=== PATIENT | female | born 1965 | race Caucasian/White ===

== ENCOUNTER 2016-06-19 09:25 | Day surgery (SDC) | payer BC ==
[2016-06-17 12:16] LABS: BASOPHILS 0.5 %; BASOPHILS ABSOLUTE 0.03 10/3/uL (0.0-0.16); EOSINOPHILS 0.9 %; EOSINOPHILS ABSOLUTE 0.05 10/3/uL (0.0-0.53); HEMATOCRIT 39.9 % (36.0-48.0); IMMATURE GRANULOCYTES 0.2 %; IMMATURE GRANULOCYTES ABSOLUTE 0.01 10/3/uL (0.0-0.11); LYMPHOCYTES 41.7 %; MEAN CORPUS HGB CONC 35.1 g/dL (32.0-36.0); MEAN CORPUSCULAR HEMOGLOB 32.9 pg (26.0-34.0); MEAN CORPUSCULAR VOLUME 93.9 fL (80-100); MONOCYTES 8.2 %; MONOCYTES ABSOLUTE 0.47 10/3/uL (0.21-1.20); NEUTROPHILS 48.5 %; NEUTROPHILS ABSOLUTE 2.79 10/3/uL (2.02-8.40); PLATELET COUNT 249 10/3/uL (150-400); RBC DISTRIBUTION WIDTH 12.7 % (12.0-16.0); RED CELL COUNT 4.25 10/6/uL (4.0-5.6); WHITE BLOOD CELLS 5.8 10/3/uL (4.5-10.5)
[2016-06-17 12:18] LABS: MANUAL DIFF NO %
[2016-06-17 12:23] LABS: INTERNATIONAL NORMAL RATI 1.1 UNITS (-); PARTIAL THROMBO TIME 26.9 SEC (22.5-37.2); PROTIME (NOT ORD) 13.8 SEC (12.0-14.5)
[2016-06-17 12:29] LABS: ASCORBIC ACID (UR NOT ORDER) NEG (NEG); BILIRUBIN, URINE NEGATIVE (NEG); KETONE, URINE NEGATIVE (NEG); LEUKOCYTE ESTERASE(NOT OR NEG (NEG); WBC (NOT ORDERED) (RFLEX) < 1 (0-5)
[2016-06-17 12:34] LABS: BUN (BLOOD UREA NITROGEN) 11 MG/DL (6-23); CALCIUM, SERUM 9.4 MG/DL (8.5-10.4); CHLORIDE, SERUM 108 MMOL/L (96-112); CO2 (CARBON DIOXIDE) 30 MMOL/L (24-34); CREATININE 0.81 MG/DL (0.55-1.02); GFR AFRICAN AMERICAN 97 ML/MIN (>=60); GFR NON AFRICAN AMERICAN 84 ML/MIN (>=60); GLUCOSE, SERUM 71 MG/DL (60-99); POTASSIUM, SERUM 4.4 MMOL/L (3.5-5.3); SODIUM, SERUM 143 MMOL/L (135-148)
--- NOTE | ~2016-06-19 | OP ---
Record Of Operation [facility] [address] [place]. [address] NAME: BRANDEE BARLOW : 63 STATUS : [facility]#: [id number] AGE: 50 ADM/REG DATE : 06/19/16 MR#: [id number] REPORT SERV DATE: 06/20/16 DICTATED BY: ROLANDO COSTELLO DATE: 06/20/16 REPORT STATUS : Draft TRANSCRIBED BY: MODL DATE: 06/20/16 DATE OF PROCEDURE: 06/19/2016 PREOPERATIVE DIAGNOSES: Pelvic pain, uterine fibroids. POSTOPERATIVE DIAGNOSES: Pelvic pain, uterine fibroids. PROCEDURES: 1. Robot-assisted laparoscopic hysterectomy with bilateral salpingectomy with ovarian preservation, CPT code 15040. 2. Cystoscopy. SURGEONS: Rolando Costello MD. ANESTHESIA: General. ESTIMATED BLOOD LOSS: 25 mL. CRYSTALLOID: 2000 mL. URINE OUTPUT: 75 mL. FINDINGS: Large 4 cm anterior uterine fibroid with grossly normal-appearing uterus, and bilateral fallopian tubes and ovaries. No pelvic deformities were encountered. PATHOLOGY: Uterus, uterine cervix, and bilateral fallopian tubes. COMPLICATIONS: None. POSTOPERATIVE PLAN: Extubated to the PACU. PROCEDURE IN DETAIL: After informed consent was signed, the patient was taken to the operating room, and placed in dorsal supine position, where adequate general anesthesia was administered. She was then placed in dorsal lithotomy position in Andi stirrups, and prepped and draped in the usual fashion, and a Mcdaniel catheter was placed. A midline incision was made with a scalpel and carried down to the fascia which was incised, muscles , posterior sheath was entered sharply, trocar was placed, and abdomen was insufflated with CO2 gas. Robot trocars were placed in the bilateral upper quadrants, and an human resource assistant port was placed in the left upper quadrant, all under direct visualization. The uterus was sounded, cervix was dilated, and the RACHID uterine manipulator was assembled and deployed. The patient was placed in steep Trendelenburg, and the robot was docked in the usual fashion. The bilateral round ligaments were taken with bipolar cautery transected with monopolar scissors, and the pelvic peritoneum was taken down lateral and parallel to the infundibulopelvic ligament. With the ureter was identified reflected medially, clips were placed in the origins of the uterine arteries bilaterally. The mesosalpinx was then taken out to the level of the uterine cornua. The utero-ovarian ligaments were then taken Record Of [address] [place]. [address] NAME: BRANDEE BARLOW : 63 STATUS : [facility]#: [id number] AGE: 50 ADM/REG DATE : 06/19/16 MR#: [id number] REPORT SERV DATE: 06/20/16 DICTATED BY: ROLANDO COSTELLO DATE: 06/20/16 REPORT STATUS : Draft TRANSCRIBED BY: VONDA DATE: 06/20/16 with bipolar cautery, and transected with monopolar scissors, and the ovaries were placed into the upper pelvis. The posterior colpotomy was made with monopolar scissors. Next, the vesicouterine peritoneum was then incised, and the bladder was taken down well beneath the level of the anterior OSCAR ring, and the anterior colpotomy was made. The uterine vessels were then taken at the cervix with bipolar cautery transected with monopolar scissors, and the parametria reflected off the cervical stroma. The anterior and posterior colpotomies were made connected using monopolar scissors; and the uterus, uterine cervix, and bilateral fallopian tubes were then brought out through the vagina. The vagina was then closed with 0 180 V-Loc suture with a running stitch. The both ovaries were then sutured to the bilateral pelvic sidewall peritoneum with 3-0 PDS suture. Care was taken to ensure the linearity of the ovarian blood supply. The pelvis was irrigated. Excellent hemostasis was noted. All instruments were removed from the abdomen. The robot was undocked. CO2 gas was evacuated. The Mcdaniel catheter was removed, and the cystoscope was placed through the urethra, and the bladder was distended with appropriate media. Bilateral brisk ureteral jets were noted suggesting bilateral ureteral patency. The cystoscope was removed, and the bladder was drained. CO2 gas was then reintroduced into the abdomen, and using the laparoscope, the pelvis was reexamined and found to be hemostatic. The laparoscope and all trocars were then removed from the abdomen, the fascia from the supraumbilical incision, and the left upper quadrant incision were closed with 0 Vicryl suture and the skin from all trocar sites was closed with 4-0 Monocryl and Dermabond. The patient tolerated the procedure well, was placed back in dorsal supine position, awakened, extubated, and sent to the PACU in stable condition. PAYLA/VONDA Rolando Costello MD / [id number] CC: MD VITALY Brown
[~2016-06-19 09:25] MED LIST: MOBIC15 MG PO; ULTRAM50 PO
== END 2016-06-19 19:22 | disposition home or self-care (01) ==
LOC: SDC 09:25
PROVIDERS: Obstetrics & Gynecology Gynecology
PROC: 0UT24ZZ Resection of Bilateral Ovaries, Percutaneous Endoscopic Approach (ICD-10-PCS; 2016-06-19)
PROC: 0UT74ZZ Resection of Bilateral Fallopian Tubes, Percutaneous Endoscopic Approach (ICD-10-PCS; 2016-06-19)
PROC: 0UT94ZZ Resection of Uterus, Percutaneous Endoscopic Approach (ICD-10-PCS; principal; 2016-06-19 10:00)
PROC: 0UTC4ZZ Resection of Cervix, Percutaneous Endoscopic Approach (ICD-10-PCS; 2016-06-19 10:00)
DX: D26.1 Other benign neoplasm of corpus uteri (principal); M15.4 Erosive (osteo)arthritis; Z79.1 Long term (current) use of non-steroidal anti-inflammatories (NSAID); Z98.890 Other specified postprocedural states
CPT/HCPCS: 36415; 71020; 80048; 81001; 84703; 85025; 85610; 85730; 86850; 86900; 86901; 88307; 93005; A9270-GY; J0694; J1885; J2250; J2270; J2405; J2710; J2795; J3010